=== PATIENT | female | born 1995 | race Caucasian/White ===

== ENCOUNTER 2019-09-04 00:45 | Emergency (ER) | payer OTHER ==
--- NOTE | 2019-09-04 00:56 | ED ---
Substance Abuse/Use - HPI Summary HPI Summary: This patient is a 24 year old F presenting to [facility] by EMS with a chief complaint of EtOH intoxication since prior to arrival. Patients boyfriend called EMS after pt had 6 to 12 shots. Pt fell outside a [place] office building. Pt is very tired. LEVEL 5 CAVEAT - INTOXICATED - History Of Current Complaint Stated Complaint: ETOH PER EMS Time Seen by Provider: 09/04/19 00:49 Hx Obtained From: Patient, EMS Hx From Patient Unobtainable Due To: Other - LEVEL 5 CAVEAT - INTOXICATED Ingestion History: Type/Name Of Drug - EtOH Overdose Characteristics: Oral Aggravating Factor(s): Nothing Alleviating Factor(s): Nothing - Allergies/Home Medications Allergies/Adverse Reactions: Allergies Allergy/AdvReac Type Severity Reaction Status Date / Time No Known Allergies Allergy Verified 09/04/19 00:49 Home Medications: Home Medications Ethinyl Estradiol/Drospirenone [Shanna 28 Tablet] 1 tab PO DAILY 09/04/19 [History Confirmed 09/04/19] PMH/Surg Hx/FS Hx/Imm Hx Previously Healthy: No - LEVEL 5 CAVEAT - INTOXICATED - Surgical History Surgical History: Unable to Obtain/Confirm - Level 5 Caveat - intoxicated - Family History Known Family History: Positive: Unknown - LEVEL 5 CAVEAT - INTOXICATED - Additional Comments History Additional Comments: LEVEL 5 CAVEAT - INTOXICATED Review of Systems Positive: Slurred Speech All Other Systems Reviewed And Are Negative: No - Comments Additional Review of Systems Comments: LEVEL 5 CAVEAT - INTOXICATED Physical Exam - Summary Physical Exam Summary: LEVEL 5 CAVEAT - INTOXICATED Appearance: Well-appearing, Well-nourished, lying in bed comfortably. Skin: Warm, dry, no obvious rash Eyes: sclera anicteric, no conjunctival pallor HENT: mucous membranes moist, pharynx appears normal Neck: Supple, nontender Respiratory: Clear to auscultation, no signs of respiratory distress Cardiovascular: Normal S1, S2. No murmurs. Normal distal pulses in tibial and radial bilaterally. Abdomen: Soft, nontender, normal active bowel sounds present Musculoskeletal: Normal, Strength/ROM Intact Neurological:Awake, alert answering questions, speech slurred, appears moderately intoxicated Psychiatric: affect normal Triage Information Reviewed: Yes Vital Signs On Initial Exam: Vital Signs - On Arrival Temp Pulse Resp BP Pulse Ox 98.0 F 70 10 124/73 100 09/04/19 00:49 09/04/19 00:49 09/04/19 00:49 09/04/19 00:49 09/04/19 00:49 Vital Signs Reviewed: Yes Procedures - Sedation Patient Received Moderate/Deep Sedation with Procedure: No Re-Evaluation - Re-Evaluation First Eval Re-Evaluation Time: 06:36 Comment: Discussed plan of care with pt. Course/Dx - Course Course Of Treatment: This patient is a 24 year old F presenting to [facility] by EMS with a chief complaint of EtOH intoxication since prior to arrival. Patients boyfriend called EMS after pt had 6 to 12 shots. Pt fell outside a [place] office building. Pt is stable and will be discharged home. LEVEL 5 CAVEAT - INTOXICATED - Diagnoses Provider Diagnoses: Alcohol intoxication Discharge ED - Sign-Out/Discharge Documenting (check all that apply): Patient Departure - Discharge Plan Condition: Improved Disposition: HOME Patient Education Materials: Alcohol Intoxication (ED) Referrals: [facility] [Outside] - If Needed - Billing Disposition and Condition Condition: IMPROVED Disposition: Home - Attestation Statements Document Initiated by Scribe: Yes Documenting Scribe: Sulma Hu Provider For Whom Lenkaibgato is Documenting (Include Credential): Federico Melo MD Scribe Attestation: Sulma Watts scribed for Federico Melo MD on 09/06/19 at 0112. Scribe Documentation Reviewed: Yes Provider Attestation: The documentation as recorded by the Sulma marroquin accurately reflects the service I personally performed and the decisions made by me, Federico Melo MD Status of Scribe Document: Viewed
[2019-09-04 06:52] VITALS: BP 127/70
== END 2019-09-04 06:50 | disposition home or self-care (01) ==
LOC: ED 00:45
DX: F10.129 Alcohol abuse with intoxication, unspecified (principal); R47.81 Slurred speech; Z79.3 Long term (current) use of hormonal contraceptives
CPT/HCPCS: 99283